=== PATIENT | female | born 1995 | race Caucasian/White ===

== ENCOUNTER → 2020-04-14 15:54 | Outpatient (CLI) | payer OTHER, SELFPAY ==
[2020-04-15 21:11] LABS: COVID19 Sendout Not Detected (Not Detect)
== END ==
PROVIDERS: Visit Provider Physician Assistant
DX: Z11.59 Encounter for screening for other viral diseases (principal)
CPT/HCPCS: 87635

== ENCOUNTER → 2020-05-14 11:22 | Outpatient (CLI) | payer OTHER, SELFPAY ==
[2020-05-16 11:54] LABS: COVID19 Sendout Not Detected (Not Detect)
== END ==
PROVIDERS: Visit Provider Nurse Practitioner
DX: Z11.59 Encounter for screening for other viral diseases (principal)
CPT/HCPCS: 87635